=== PATIENT | female | born 1985 | race Caucasian/White ===

== ENCOUNTER 2020-07-16 09:12 | Emergency (ER) | payer BC ==
[~2020-07-16] VITALS: Ht 160 cm; Wt 67.7 kg
[2020-07-16 09:31] VITALS: BP 156/105
--- NOTE | 2020-07-16 10:07 | NUR ---
Seen and assessed by provider.
== END 2020-07-16 10:32 | disposition home or self-care (01) ==
LOC: ER 09:13
DX: R51.9 Headache, unspecified (principal); R50.9 Fever, unspecified; M79.18 Myalgia, other site; R00.0 Tachycardia, unspecified; R05 Cough; F17.200 Nicotine dependence, unspecified, uncomplicated; Z20.828 Contact with and (suspected) exposure to other viral communicable diseases
CPT/HCPCS: 36415; 99281

== ENCOUNTER 2021-06-27 16:41 | Emergency (ER) | payer OTHER, BC ==
[~2021-06-27] VITALS: Ht 185.4 cm; Wt 61.4 kg
[2021-06-27 18:57] VITALS: BP 160/91
[2021-06-27] MEDS ORDERED: cyclobenzaprine 10mg tablet PO ONE (19:00)
[2021-06-27] MEDS ORDERED: ketorolac tromethamine 15mg/ml inj. IM ONE (19:00)
[2021-06-27] MEDS ORDERED: IBUP-1984 PO (19:33)
[2021-06-27] MEDS ORDERED: CYCL-1 PO (19:33)
== END 2021-06-27 20:21 | disposition home or self-care (01) ==
LOC: ER 16:42
DX: M54.2 Cervicalgia (principal); R51.9 Headache, unspecified; Z79.899 Other long term (current) drug therapy; V87.7XXA Person injured in collision between other specified motor vehicles (traffic), initial encounter; Y93.89 Activity, other specified; Y92.89 Other specified places as the place of occurrence of the external cause; Y99.8 Other external cause status
CPT/HCPCS: 70450; 72125; 96372; 99285; J1885